=== PATIENT | female | born 1955 | race African-American/Black ===

== ENCOUNTER 2019-10-17 06:15 | Day surgery (SDC) | payer OTHER ==
[2019-10-16 15:58] VITALS: BMI 33.8
[2019-10-17] MEDS ORDERED: LIDOCAINE HCL 1%, 10 MG/ML (20ML VIAL) ONE (07:21)
--- NOTE | 2019-10-17 08:23 | HP ---
Satellite [facility] - Chief Complaint History of Present Illness: 64 year old woman with headache and elevated ESR and CRP. History Source: Patient, Medical Record Limitations to Obtaining History: No Limitations - Past Medical History Allergies/Adverse Reactions: Allergies Allergy/AdvReac Type Severity Reaction Status Date / Time No Known Allergies Allergy Verified 10/16/19 15:38 Cardiovascular: Yes: HTN Additional Medical History: Glaucoma, blind right eye - Current Medications Current Medications: Home Medications Medication Instructions Recorded Losartan Potassium 25 mg PO DAILY 10/17/19 Satellite Physical Exam - Physical Examination Vital Signs: Vital Signs Period Temp Pulse Resp BP Sys/Berman Pulse Ox Last 24 Hr 98.9 F-98.9 F 84-84 20-20 155-155/88-88 99 General Appearance: Alert & Oriented x3, No Distress ENT: Other (Right eye injected) Lung: Clear to auscultation Heart: Regular rate & rhythm Abdomen: Soft Extremities: No edema Neurological: Intact Satellite Impression/Plan - Impression/Plan Impression: R/O temporal arteritis Operative Procedure: Temporal artery biopsy Date to be Performed: 10/17/19
[2019-10-17] MEDS ORDERED: SUCCINYLCHOLINE CHLORIDE 200 MG/10 ML SYRINGE ONE (08:32)
[2019-10-17] MEDS ORDERED: PROPOFOL 20 ML ONE (08:32)
[2019-10-17] MEDS ORDERED: MIDAZOLAM HCL 2 MG/2 ML SINGLE DOSE VIAL ONE (08:32)
[2019-10-17] MEDS ORDERED: KETAMINE HCL 200 MG/20 ML VIAL ONE (08:32)
[2019-10-17] MEDS ORDERED: LIDOCAINE HCL 1%, 10 MG/ML (20ML VIAL) INF ONE ×2 (08:48)
[2019-10-17] MEDS ORDERED: ACETAMINOPHEN WITH CODEINE 300MG/30MG TABLET PO PRN (09:35)
--- NOTE | 2019-10-17 09:35 | OP ---
Operative Note - Note: Operative Date: 10/17/19 Pre-Operative Diagnosis: R/o temporal arteritis Operation: Temporal artery biopsy, bilateral Findings: Normal appearing artery both sides Post-Operative Diagnosis: Same as Pre-op Surgeon: Yanick Espinoza Anesthesiologist/SUPERVISOR [employer]: Emerson Camacho Anesthesia: Fractional Specimens Removed: Temporal artery, bilateral Estimated Blood Loss (mls): 20
[2019-10-17 11:02] VITALS: BP 134/69; PULSE 80
[2019-10-17 11:06] VITALS: TEMP 97.5
[2019-10-17] MEDS ORDERED: oxyCODONE HCL 5 MG TABLET PO PRN ×2 (11:49)
[2019-10-17] MEDS ORDERED: ONDANSETRON 4 MG/2 ML VIAL IVPUSH PRN (11:49)
[2019-10-17] MEDS ORDERED: LACTATED RINGERS SOLUTION 1,000 ML IV SCH (12:00)
--- NOTE | 2019-10-17 16:25 | OP ---
DATE OF OPERATION: 10/17/2019 PROCEDURE: Temporal artery biopsy, bilateral. PREOPERATIVE DIAGNOSIS: Rule out temporal arteritis. POSTOPERATIVE DIAGNOSIS: Rule out temporal arteritis. ANESTHESIA: Fractional. ANESTHESIOLOGIST: Timo Askew CRNA OPERATIVE FINDINGS: The temporal artery on both sides of the head appeared normal grossly. OPERATIVE PROCEDURE: Following routine patient identification, intravenous sedation was established. The skin of both temples and forehead was prepped with ChloraPrep. Timeout was performed. Lidocaine 1% was infiltrated over the right superficial temporal artery pulse at the hairline. An incision was made and carried into subcutaneous tissues using cautery for hemostasis. The superficial temporal artery was identified and was mobilized for the length of the incision of approximately 15 mm. All side branches of the vessel were ligated and it was ligated proximally and distally with silk ties. A portion of the artery was removed and sent to Pathology in formalin. The wound was closed with interrupted suture of 4-0 Vicryl on subcutaneous tissues and running subcuticular suture of 4-0 Biosyn on the skin. Dermabond glue was applied as a dressing. Biopsy of the left temporal artery was performed in the similar fashion and a second portion of artery also approximately 15 mm in length was sent to Pathology in a separate container. Wound was closed and covered with Dermabond. The patient was taken back to [facility] in stable condition. CHRISTA PAULSON M.D. [id number]
--- NOTE | 2019-10-18 15:55 | PATH ---
Surgical Pathology Report Patient Name: ELENA QUINTERO Med. Rec. #: [id number] /Age/Gender: 1955 (Age: 64) / F Account: [id number] Location: [facility] SUR[facility] Taken: 10/17/2019 Received: 10/17/2019 Reported: 10/18/2019 Physicians: Yanick Espinoza M.D. Specimen(s) Received A: LEFT SIDE TEMPORAL ARTERY B: RIGHT SIDE TEMPORAL ARTERY Clinical History r/o Temporal arteritis Final Diagnosis A. TEMPORAL ARTERY, LEFT SIDE, BIOPSY: MUSCULAR ARTERY WITH NO EVIDENCE OF ARTERITIS. MULTIPLE LEVELS EXAMINED. B. TEMPORAL ARTERY, RIGHT SIDE, BIOPSY: MUSCULAR ARTERY WITH NO EVIDENCE OF ARTERITIS. MULTIPLE LEVELS EXAMINED. Electronically Signed Catie Barker M.D. Gross Description A. Received in formalin labeled "left side-temporal artery," is a 1.1 cm in length page portion of vasculature, consistent with a temporal artery biopsy. The specimen is serially sectioned and entirely submitted in one cassette. B. Received in formalin labeled "right side temporal artery," is a 1.5 cm in length portion of vasculature, consistent with a temporal artery biopsy. The specimen is serially sectioned and entirely submitted in one cassette. DL/10/17/2019 saudi10/17/2019
== END 2019-10-17 11:26 | disposition home or self-care (01) ==
LOC: JASU-SURG 06:15
PROVIDERS: ATTEND Surgery
PROC: 03BS0ZX Excision of Right Temporal Artery, Open Approach, Diagnostic (ICD-10-PCS; 2019-10-17)
PROC: 03BT0ZX Excision of Left Temporal Artery, Open Approach, Diagnostic (ICD-10-PCS; principal; 2019-10-17 08:48)
DX: M31.6 Other giant cell arteritis (principal)